=== PATIENT | male | born 1995 | race Caucasian/White ===

== ENCOUNTER 2016-11-08 18:05 | Emergency (ER) | payer OTHER ==
[~2016-11-08] VITALS: Ht 182.9 cm; Wt 75.0 kg
[~2016-11-08 18:05] MED LIST: OXYC-360 PO; Z.0.NO CURRENT MEDS
[2016-11-08 18:15] VITALS: BP 120/58; PULSE 84; RESP 20; O2SAT 95
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
[2016-11-08] MEDS ORDERED: TETANUS/DIPHTHERIA TOXOID ADULT 0.5 ML VIAL IM ONE (19:15)
[2016-11-08] MEDS ORDERED: LIDOCAINE 1%/EPINEPHrine 1:100,000 SOLN 20 ML VIAL INFIL ONE (19:15)
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
[2016-11-08 19:37] VITALS: TEMP 98.4
[2016-11-08] MEDS ORDERED: IBUPROFEN 800 MG TAB PO ONE (20:15)
== END 2016-11-08 20:11 ==
LOC: NEPD 18:05
DX: S09.90XA Unspecified injury of head, initial encounter (principal); S01.511A Laceration without foreign body of lip, initial encounter; S00.81XA Abrasion of other part of head, initial encounter; Y04.8XXA Assault by other bodily force, initial encounter; Z23 Encounter for immunization; Z72.0 Tobacco use
CPT/HCPCS: 12011; 70450; 70486; 90471; 90714